=== PATIENT | female | born 1985 | race Caucasian/White ===

== ENCOUNTER 2016-11-24 19:40 | Emergency (ER) | payer OTHER ==
[2016-11-24 19:57] VITALS: BP 138/79
== END 2016-11-24 21:18 | disposition home or self-care (01) ==
LOC: ED 19:40
DX: Z48.00 Encounter for change or removal of nonsurgical wound dressing (principal)

== ENCOUNTER 2017-10-23 15:54 | Emergency (ER) | payer OTHER ==
[~2017-10-23] VITALS: Ht 170.2 cm; Wt 99.8 kg
[2017-10-23 16:08] VITALS: Ht 170.2 cm; Wt 99.8 kg
[2017-10-23 18:40] VITALS: BP 135/92
== END 2017-10-23 18:40 | disposition home or self-care (01) ==
LOC: ED 15:54
DX: S62.521A Displaced fracture of distal phalanx of right thumb, initial encounter for closed fracture (principal); E03.9 Hypothyroidism, unspecified; W22.8XXA Striking against or struck by other objects, initial encounter; Y93.89 Activity, other specified; Y92.89 Other specified places as the place of occurrence of the external cause; Y99.8 Other external cause status
CPT/HCPCS: J1885

== ENCOUNTER 2018-07-20 21:15 | Emergency (ER) | payer OTHER ==
[~2018-07-20] VITALS: Ht 167.6 cm; Wt 96.2 kg
[2018-07-20 21:28] VITALS: Ht 167.6 cm; Wt 96.2 kg
[2018-07-20 22:15] LABS: BASOPHIL % 0.5 % (0-2); PLATELET COUNT 252 x10^3mcL (130-400); RED CELL DISTRIBUTION WIDTH 14.4 % (11.5-14.5)
[2018-07-20 22:28] LABS: CALCIUM 8.8 mg/dL (8.5-10.1); CARBON DIOXIDE 24.4 mmol/L (21-32); CHLORIDE SERUM 104 mmol/L (98-107); CREATININE SERUM 0.6 mg/dL (0.6-1.0); GFR1 > 60 mL/min; GLUCOSE SERUM 122 mg/dL (74-106); POTASSIUM SERUM 3.4 mmol/L (3.5-5.1); SODIUM SERUM 138 mmol/L (136-145)
[2018-07-20 22:42] LABS: ALBUMIN 3.5 g/dL (3.4-5.0); ALKALINE PHOSPHATASE 52 U/L (46-116); ALT/SGPT 37 U/L (14-59); AST/SGOT 22 U/L (15-37); BILIRUBIN TOTAL 0.27 mg/dL (0.20-1.00); TOTAL PROTEIN, SERUM 7.8 g/dL (6.4-8.2)
[2018-07-20 23:08] VITALS: BP 124/78
== END 2018-07-20 23:08 | disposition home or self-care (01) ==
LOC: ED 21:15
PROVIDERS: Emergency Medicine
DX: R00.2 Palpitations (principal); R06.02 Shortness of breath; E03.9 Hypothyroidism, unspecified
CPT/HCPCS: 36415

== ENCOUNTER 2018-08-08 08:54 | Emergency (ER) | payer OTHER ==
[~2018-08-08] VITALS: Ht 167.6 cm; Wt 96.6 kg
[2018-08-08 09:05] VITALS: Ht 167.6 cm; Wt 96.6 kg
[2018-08-08 11:27] VITALS: BP 155/101
== END 2018-08-08 11:28 | disposition home or self-care (01) ==
LOC: ED 08:54
DX: J36 Peritonsillar abscess (principal); E03.9 Hypothyroidism, unspecified; Z98.890 Other specified postprocedural states
CPT/HCPCS: J0696; J1885